=== PATIENT | female | born 1975 | race African-American/Black ===

== ENCOUNTER 2016-10-30 08:04 | Emergency (ER) | payer SELFPAY ==
[~2016-10-30 08:04] MED LIST: NO HOME MEDICATION XX; NORCO 5-325 TA1 EACH PO
[2016-10-30] MEDS ORDERED: TRIAMCINOLONE A15 G2 TP ×2 (09:01→09:54)
[2016-10-30 09:02] LABS: URINE BILIRUBIN NEGATIVE (NEG); URINE BLOOD SMALL (NEG); URINE GLUCOSE (UA) NEGATIVE (NEG); URINE KETONE NEGATIVE (NEG); URINE LEUKOCYTE ESTERASE POSITIVE (NEG); URINE NITRITE NEGATIVE (NEG); URINE PROTEIN SMALL (NEG)
[2016-10-30 09:04] LABS: URINE APPEARANCE CLEAR; URINE COLOR YELLOW
[2016-10-30 09:14] LABS: URINE EPITHELIAL CELLS 0-1 /[HPF] (0-10); URINE MUCUS 1+; URINE RBC 0-1 /[HPF] (0-5)
[2016-10-30] MEDS ORDERED: KEFLEX500 M4 PO (09:54)
== END 2016-10-30 10:20 ==
LOC: EDMED 08:04
PROVIDERS: Emergency Medicine
DX: N39.0 Urinary tract infection, site not specified (principal); L30.9 Dermatitis, unspecified